=== PATIENT | male | born 1990 | race Two or more races ===

== ENCOUNTER 2018-09-02 22:26 | Inpatient (IN) | payer OTHER | END 2018-09-15 19:26 | disposition home or self-care (01) | LOC: YASAS 22:26 → Y5N 23:52 ==

== ENCOUNTER 2021-12-06 13:07 | Inpatient (IN) | payer OTHER ==
[2021-12-06] MEDS: THIAMINE HCL 100 MG TABLET (FP) PO SCH (00:39)
[2021-12-06 16:29] VITALS: BMI 20.7
[2021-12-06] MEDS ORDERED: diazePAM 5 MG TABLET PO SCH (17:00)
[2021-12-06] MEDS ORDERED: MAG HYDROX/AL HYDROX/SIMETH 30 ML UNIT-DOSE CUP PO PRN (18:03)
[2021-12-06] MEDS ORDERED: ONDANSETRON *ODT* 4 MG TABLET SL PRN (18:03)
[2021-12-06] MEDS ORDERED: LOPERAMIDE HCL 2 MG CAPSULE PO PRN (18:03)
[2021-12-06] MEDS ORDERED: NICOTINE 10 MG CARTRIDGE (INHALER) IH PRN (18:03)
[2021-12-06] MEDS ORDERED: NALOXONE HCL (KLOXXADO) 8 MG SPRAY NS PRN (18:03)
[2021-12-06] MEDS ORDERED: BENZOCAINE/MENTHOL (CHLORASEPTIC ) LOZENGE MM PRN (18:03)
[2021-12-06] MEDS ORDERED: IBUPROFEN 600 MG TABLET (FP) PO PRN (18:03)
[2021-12-06] MEDS ORDERED: BISMUTH SUBSALICYLATE 524 MG/30 ML PO PRN (18:03)
[2021-12-06] MEDS ORDERED: MAGNESIUM CITRATE 300 ML BOTTLE PO PRN (18:03)
[2021-12-06] MEDS ORDERED: MAGNESIUM HYDROX 2400MG/30ML ORAL SUSPENSION 30 ML CUP PO PRN (18:03)
[2021-12-06] MEDS ORDERED: ACETAMINOPHEN 325 MG TABLET (FP) PO PRN (18:03)
[2021-12-06] MEDS ORDERED: DICYCLOMINE HCL 10 MG CAPSULE PO PRN (18:03)
[2021-12-06] MEDS: NICOTINE 14 MG/24 HOURS TOPICAL PATCH TD SCH (19:33)
[2021-12-06] MEDS: PRENATAL VITAMINS W/ FOLIC ACID TABLET (FP) PO SCH (19:33)
[2021-12-06] MEDS: hydrOXYzine PAMOATE 25 MG CAPSULE (FP) PO PRN (19:50)
[2021-12-06] MEDS: diazePAM 5 MG TABLET PO SCH (19:51)
[2021-12-06] MEDS: METHOCARBAMOL 500 MG TABLET PO PRN (19:51)
[2021-12-07] MEDS: MELATONIN 5 MG TABLETS PO SCH ×2 (00:39→22:33)
[2021-12-07] MEDS: diazePAM 5 MG TABLET PO SCH ×4 (01:57→21:08)
[2021-12-07] MEDS ORDERED: methaDONE HCL 10 MG TABLET PO ONE (09:10)
[2021-12-07] MEDS ORDERED: methaDONE 40 MG, methaDONE 20 MG PO ONE (09:30)
[2021-12-07 09:54] LABS: HEMATOCRIT 35.3 % (35.4-49); HEMOGLOBIN 11.6 GM/dL (11.7-16.9); MCH 27.6 pg (25.7-33.7); MCHC 32.8 g/dl (32.0-35.9); MEAN PLT VOLUME 10.7 fl (7.5-11.1); PLATELET COUNT 129 10^3/uL (134-434); RDW 14.4 % (11.9-15.9); WHITE BLOOD COUNT 3.9 K/mm3 (4.0-10.0)
[2021-12-07 10:04] LABS: CALCIUM 8.8 mg/dL (8.5-10.1)
[2021-12-07 10:05] LABS: ALBUMIN 3.2 g/dl (3.4-5.0); BLOOD UREA NITROGEN 16.2 mg/dL (7-18)
[2021-12-07 10:07] LABS: CREATININE 0.8 mg/dL (0.55-1.3)
[2021-12-07 10:09] LABS: BILIRUBIN,TOTAL 0.4 mg/dL (0.2-1); TOT PROT 6.4 g/dl (6.4-8.2)
[2021-12-07] MEDS: METHOCARBAMOL 500 MG TABLET PO PRN ×2 (10:49→18:02)
[2021-12-07] MEDS: ACETAMINOPHEN 325 MG TABLET (FP) PO PRN (10:49)
[2021-12-07] MEDS: diazePAM 5 MG TABLET PO PRN ×3 (10:51→22:33)
[2021-12-07] MEDS: NICOTINE 14 MG/24 HOURS TOPICAL PATCH TD SCH (10:52)
[2021-12-07] MEDS: PRENATAL VITAMINS W/ FOLIC ACID TABLET (FP) PO SCH (10:52)
[2021-12-07] MEDS: THIAMINE HCL 100 MG TABLET (FP) PO SCH (22:33)
[2021-12-07] MEDS: IBUPROFEN 400 MG TABLET (FP) PO PRN (22:34)
[2021-12-08] MEDS: diazePAM 5 MG TABLET PO SCH ×3 (02:30→18:25)
[2021-12-08] MEDS ORDERED: diazePAM 5 MG TABLET PO SCH (06:00)
[2021-12-08] MEDS ORDERED: methaDONE HCL 10 MG TABLET PO ONE (06:00)
[2021-12-08] MEDS ORDERED: methaDONE 40 MG, methaDONE 30 MG PO ONE (06:00)
[2021-12-08] MEDS: NICOTINE 14 MG/24 HOURS TOPICAL PATCH TD SCH (11:00)
[2021-12-08] MEDS: PRENATAL VITAMINS W/ FOLIC ACID TABLET (FP) PO SCH (11:01)
[2021-12-08] MEDS: diazePAM 5 MG TABLET PO PRN ×2 (13:33→22:22)
[2021-12-08] MEDS: THIAMINE HCL 100 MG TABLET (FP) PO SCH (22:21)
[2021-12-08] MEDS: hydrOXYzine PAMOATE 25 MG CAPSULE (FP) PO PRN (22:21)
[2021-12-08] MEDS: METHOCARBAMOL 500 MG TABLET PO PRN (22:21)
[2021-12-08] MEDS: MELATONIN 5 MG TABLETS PO SCH (22:21)
[2021-12-08] MEDS: ACETAMINOPHEN 325 MG TABLET (FP) PO PRN (22:22)
[2021-12-09] MEDS ORDERED: diazePAM 5 MG TABLET PO SCH (06:00)
[2021-12-09] MEDS ORDERED: methaDONE HCL 10 MG TABLET PO SCH (06:00)
[2021-12-09] MEDS ORDERED: diazePAM 5 MG TABLET PO ONE (06:00)
[2021-12-09] MEDS: methaDONE HCL 40 MG DISPERSABLE TABLET PO SCH (06:06)
[2021-12-09] MEDS: PRENATAL VITAMINS W/ FOLIC ACID TABLET (FP) PO SCH (10:54)
[2021-12-09] MEDS: NICOTINE 14 MG/24 HOURS TOPICAL PATCH TD SCH (10:54)
[2021-12-09 12:41] VITALS: RESP 18
[2021-12-09] MEDS: THIAMINE HCL 100 MG TABLET (FP) PO SCH (22:14)
[2021-12-09] MEDS: MELATONIN 5 MG TABLETS PO SCH (22:14)
[2021-12-09] MEDS: IBUPROFEN 400 MG TABLET (FP) PO PRN (22:15)
[2021-12-10] MEDS: methaDONE HCL 40 MG DISPERSABLE TABLET PO SCH (05:16)
[2021-12-10] MEDS ORDERED: diazePAM 5 MG TABLET PO ONE (06:00)
[2021-12-10 09:41] VITALS: BP 111/58; PULSE 98; TEMP 97.8
[2021-12-10] MEDS: NICOTINE 14 MG/24 HOURS TOPICAL PATCH TD SCH (09:49)
[2021-12-10] MEDS: PRENATAL VITAMINS W/ FOLIC ACID TABLET (FP) PO SCH (09:50)
== END 2021-12-10 09:42 | disposition home or self-care (01) | DRG 773 ==
LOC: YASAS 13:07 → Y6N 18:17
PROVIDERS: ADMIT Allergy & Immunology; ATTEND Surgery
PROC: HZ2ZZZZ Detoxification Services for Substance Abuse Treatment (ICD-10-PCS; principal; 2021-12-06)
DX: F10.230 Alcohol dependence with withdrawal, uncomplicated (principal); F11.20 Opioid dependence, uncomplicated; F14.20 Cocaine dependence, uncomplicated; F17.210 Nicotine dependence, cigarettes, uncomplicated; Z86.19 Personal history of other infectious and parasitic diseases; Z88.0 Allergy status to penicillin; Z59.00 Homelessness unspecified
CPT/HCPCS: 36415; 80053; 85027; 86780; C9803-CS; U0003; U0005

== ENCOUNTER 2022-01-02 11:10 | Inpatient (IN) | payer OTHER ==
[2022-01-02 13:39] VITALS: BMI 20.7
[2022-01-02] MEDS ORDERED: chlordiazePOXIDE HCL 25 MG CAPSULE PO PRN (14:45)
[2022-01-02] MEDS ORDERED: ACETAMINOPHEN 325 MG TABLET (FP) PO PRN (14:50)
[2022-01-02] MEDS ORDERED: MAGNESIUM HYDROX 2400MG/30ML ORAL SUSPENSION 30 ML CUP PO PRN (14:50)
[2022-01-02] MEDS ORDERED: ONDANSETRON *ODT* 4 MG TABLET SL PRN (14:50)
[2022-01-02] MEDS ORDERED: MAG HYDROX/AL HYDROX/SIMETH 30 ML UNIT-DOSE CUP PO PRN (14:50)
[2022-01-02] MEDS ORDERED: IBUPROFEN 400 MG TABLET (FP) PO PRN (14:50)
[2022-01-02] MEDS ORDERED: BENZOCAINE/MENTHOL (CHLORASEPTIC ) LOZENGE MM PRN (14:50)
[2022-01-02] MEDS ORDERED: DICYCLOMINE HCL 10 MG CAPSULE PO PRN (14:50)
[2022-01-02] MEDS ORDERED: NICOTINE 10 MG CARTRIDGE (INHALER) IH PRN (14:50)
[2022-01-02] MEDS ORDERED: POLYETHYLENE GLYCOL (HEALTHYLAX) 3350 17 GM PACKET PO PRN (14:50)
[2022-01-02] MEDS ORDERED: LOPERAMIDE HCL 2 MG CAPSULE PO PRN (14:50)
[2022-01-02] MEDS ORDERED: NALOXONE HCL (KLOXXADO) 8 MG SPRAY NS PRN (14:50)
[2022-01-02] MEDS ORDERED: BISMUTH SUBSALICYLATE 262 MG/15 ML BTL PO PRN (14:50)
[2022-01-02] MEDS ORDERED: BENZOCAINE 20 % GEL TUBE MM PRN (14:56)
[2022-01-02] MEDS ORDERED: chlordiazePOXIDE HCL 25 MG CAPSULE PO SCH (17:00)
[2022-01-02] MEDS: hydrOXYzine PAMOATE 25 MG CAPSULE (FP) PO PRN ×2 (17:49→22:08)
[2022-01-02] MEDS: METHOCARBAMOL 500 MG TABLET PO PRN (17:49)
[2022-01-02] MEDS: diazePAM 5 MG TABLET PO SCH ×2 (17:50→22:08)
[2022-01-02] MEDS: IBUPROFEN 600 MG TABLET (FP) PO PRN (17:53)
[2022-01-02] MEDS: MELATONIN 5 MG TABLETS PO SCH (22:07)
[2022-01-02] MEDS: THIAMINE HCL 100 MG TABLET (FP) PO SCH (22:08)
[2022-01-03] MEDS: diazePAM 5 MG TABLET PO SCH ×4 (06:05→22:31)
[2022-01-03 10:38] LABS: HEMATOCRIT 39.5 % (35.4-49); HEMOGLOBIN 12.8 GM/dL (11.7-16.9); MCH 27.8 pg (25.7-33.7); MCHC 32.4 g/dl (32.0-35.9); MEAN CELL VOLUME 85.7 fl (80-96); MEAN PLT VOLUME 11.5 fl (7.5-11.1); PLATELET COUNT 141 10^3/uL (134-434); RDW 14.4 % (11.9-15.9); WHITE BLOOD COUNT 5.6 K/mm3 (4.0-10.0)
[2022-01-03 10:39] LABS: CALCIUM 9.5 mg/dL (8.5-10.1)
[2022-01-03 10:40] LABS: ALBUMIN 3.9 g/dl (3.4-5.0); BLOOD UREA NITROGEN 16.8 mg/dL (7-18)
[2022-01-03 10:43] LABS: CREATININE 0.9 mg/dL (0.55-1.3)
[2022-01-03 10:45] LABS: BILIRUBIN,TOTAL 0.4 mg/dL (0.2-1); TOT PROT 7.7 g/dl (6.4-8.2)
[2022-01-03] MEDS: methaDONE HCL 40 MG DISPERSABLE TABLET PO SCH (11:01)
[2022-01-03] MEDS: PRENATAL VITAMINS W/ FOLIC ACID TABLET (FP) PO SCH (11:02)
[2022-01-03] MEDS: IBUPROFEN 600 MG TABLET (FP) PO PRN ×2 (11:03→18:15)
[2022-01-03] MEDS: ACETAMINOPHEN 325 MG TABLET (FP) PO PRN (22:28)
[2022-01-03] MEDS: THIAMINE HCL 100 MG TABLET (FP) PO SCH (22:29)
[2022-01-03] MEDS: MELATONIN 5 MG TABLETS PO SCH (22:29)
[2022-01-04] MEDS ORDERED: chlordiazePOXIDE HCL 25 MG CAPSULE PO SCH (05:00)
[2022-01-04] MEDS: diazePAM 5 MG TABLET PO SCH ×3 (06:41→22:12)
[2022-01-04] MEDS: methaDONE HCL 40 MG DISPERSABLE TABLET PO SCH (06:41)
[2022-01-04] MEDS: METHOCARBAMOL 500 MG TABLET PO PRN ×2 (10:22→22:11)
[2022-01-04] MEDS: PRENATAL VITAMINS W/ FOLIC ACID TABLET (FP) PO SCH (10:22)
[2022-01-04] MEDS: ACETAMINOPHEN 325 MG TABLET (FP) PO PRN (10:22)
[2022-01-04] MEDS: diazePAM 5 MG TABLET PO PRN ×2 (10:23→18:08)
[2022-01-04 17:21] VITALS: RESP 18
[2022-01-04] MEDS: IBUPROFEN 600 MG TABLET (FP) PO PRN (18:07)
[2022-01-04] MEDS: THIAMINE HCL 100 MG TABLET (FP) PO SCH (22:11)
[2022-01-04] MEDS: MELATONIN 5 MG TABLETS PO SCH (22:11)
[2022-01-05] MEDS ORDERED: chlordiazePOXIDE HCL 10 MG CAPSULE PO PRN
[2022-01-05] MEDS ORDERED: chlordiazePOXIDE HCL 10 MG CAPSULE PO SCH (05:00)
[2022-01-05] MEDS: diazePAM 5 MG TABLET PO SCH ×2 (05:56→17:40)
[2022-01-05] MEDS: methaDONE HCL 40 MG DISPERSABLE TABLET PO SCH (05:57)
[2022-01-05] MEDS: ACETAMINOPHEN 325 MG TABLET (FP) PO PRN ×2 (06:00→17:47)
[2022-01-05] MEDS: METHOCARBAMOL 500 MG TABLET PO PRN ×2 (06:01→17:46)
[2022-01-05] MEDS: diazePAM 5 MG TABLET PO PRN ×2 (10:09→15:20)
[2022-01-05] MEDS: PRENATAL VITAMINS W/ FOLIC ACID TABLET (FP) PO SCH (10:10)
[2022-01-05] MEDS: THIAMINE HCL 100 MG TABLET (FP) PO SCH (22:10)
[2022-01-05] MEDS: MELATONIN 5 MG TABLETS PO SCH (22:10)
[2022-01-05] MEDS: IBUPROFEN 600 MG TABLET (FP) PO PRN (22:11)
[2022-01-06] MEDS ORDERED: chlordiazePOXIDE HCL 10 MG CAPSULE PO SCH (05:00)
[2022-01-06] MEDS: methaDONE HCL 40 MG DISPERSABLE TABLET PO SCH (05:53)
[2022-01-06] MEDS: ACETAMINOPHEN 325 MG TABLET (FP) PO PRN (05:53)
[2022-01-06] MEDS: METHOCARBAMOL 500 MG TABLET PO PRN (05:54)
[2022-01-06] MEDS ORDERED: diazePAM 5 MG TABLET PO ONE (06:00)
[2022-01-06 07:15] VITALS: BP 109/67; PULSE 68; TEMP 97.5
[2022-01-07] MEDS ORDERED: chlordiazePOXIDE HCL 10 MG CAPSULE PO ONE (05:00)
== END 2022-01-06 09:05 | disposition home or self-care (01) | DRG 773 ==
LOC: YASAS 11:10 → Y3N 15:33
PROVIDERS: ADMIT Allergy & Immunology; ATTEND Surgery
PROC: HZ2ZZZZ Detoxification Services for Substance Abuse Treatment (ICD-10-PCS; principal; 2022-01-02)
DX: F10.230 Alcohol dependence with withdrawal, uncomplicated (principal); F11.20 Opioid dependence, uncomplicated; F14.20 Cocaine dependence, uncomplicated; F17.210 Nicotine dependence, cigarettes, uncomplicated; F31.9 Bipolar disorder, unspecified; F19.24 Other psychoactive substance dependence with psychoactive substance-induced mood disorder; G47.00 Insomnia, unspecified; R74.01 Elevation of levels of liver transaminase levels; Z88.8 Allergy status to other drugs, medicaments and biological substances; Z56.0 Unemployment, unspecified; Z59.00 Homelessness unspecified
CPT/HCPCS: 36415; 80048; 80053; 85027; 86780; C9803-CS; U0003; U0005

== ENCOUNTER 2022-02-26 14:43 | Inpatient (IN) | payer OTHER ==
[2022-02-26 16:47] VITALS: BMI 27.0
[2022-02-26] MEDS ORDERED: MAGNESIUM HYDROX 2400MG/30ML ORAL SUSPENSION 30 ML CUP PO PRN (18:32)
[2022-02-26] MEDS ORDERED: MAG HYDROX/AL HYDROX/SIMETH 30 ML UNIT-DOSE CUP PO PRN (18:32)
[2022-02-26] MEDS ORDERED: ONDANSETRON *ODT* 4 MG TABLET SL PRN (18:32)
[2022-02-26] MEDS ORDERED: BENZOCAINE/MENTHOL (CHLORASEPTIC ) LOZENGE MM PRN (18:32)
[2022-02-26] MEDS ORDERED: DICYCLOMINE HCL 10 MG CAPSULE PO PRN (18:32)
[2022-02-26] MEDS ORDERED: LOPERAMIDE HCL 2 MG CAPSULE PO PRN (18:32)
[2022-02-26] MEDS ORDERED: NICOTINE 10 MG CARTRIDGE (INHALER) IH PRN (18:32)
[2022-02-26] MEDS ORDERED: ACETAMINOPHEN 325 MG TABLET (FP) PO PRN (18:32)
[2022-02-26] MEDS ORDERED: IBUPROFEN 400 MG TABLET (FP) PO PRN (18:32)
[2022-02-26] MEDS ORDERED: POLYETHYLENE GLYCOL (HEALTHYLAX) 3350 17 GM PACKET PO PRN (18:32)
[2022-02-26] MEDS ORDERED: BISMUTH SUBSALICYLATE 524 MG/30 ML PO PRN (18:32)
[2022-02-26] MEDS ORDERED: NALOXONE HCL (KLOXXADO) 8 MG SPRAY NS PRN (18:32)
[2022-02-26] MEDS: PRENATAL VITAMINS W/ FOLIC ACID TABLET (FP) PO SCH (21:32)
[2022-02-26] MEDS: THIAMINE HCL 100 MG TABLET (FP) PO SCH (22:28)
[2022-02-26] MEDS: MELATONIN 5 MG TABLETS PO SCH (22:28)
[2022-02-26] MEDS: METHOCARBAMOL 500 MG TABLET PO PRN (22:29)
[2022-02-26] MEDS: diazePAM 5 MG TABLET PO SCH (22:32)
[2022-02-27] MEDS: diazePAM 5 MG TABLET PO SCH ×4 (05:56→22:10)
[2022-02-27] MEDS: ACETAMINOPHEN 325 MG TABLET (FP) PO PRN (05:57)
[2022-02-27] MEDS: PRENATAL VITAMINS W/ FOLIC ACID TABLET (FP) PO SCH (10:29)
[2022-02-27] MEDS ORDERED: methaDONE HCL 40 MG DISPERSABLE TABLET PO ONE (11:00)
[2022-02-27 12:54] LABS: HEMATOCRIT 36.9 % (35.4-49); HEMOGLOBIN 12.1 GM/dL (11.7-16.9); MCH 27.9 pg (25.7-33.7); MCHC 32.9 g/dl (32.0-35.9); MEAN CELL VOLUME 84.8 fl (80-96); PLATELET COUNT 96 10^3/uL (134-434); RBC 4.35 M/mm3 (4.00-5.60); RDW 14.4 % (11.9-15.9); WHITE BLOOD COUNT 4.4 K/mm3 (4.0-10.0)
[2022-02-27 13:36] LABS: ALBUMIN 3.1 g/dl (3.4-5.0); CALCIUM 8.6 mg/dL (8.5-10.1)
[2022-02-27 13:39] LABS: CREATININE 0.7 mg/dL (0.55-1.3)
[2022-02-27 13:40] LABS: BILIRUBIN,TOTAL 1.1 mg/dL (0.2-1); TOT PROT 6.7 g/dl (6.4-8.2)
[2022-02-27] MEDS: METHOCARBAMOL 500 MG TABLET PO PRN (22:10)
[2022-02-27] MEDS: THIAMINE HCL 100 MG TABLET (FP) PO SCH (22:10)
[2022-02-27] MEDS: MELATONIN 5 MG TABLETS PO SCH (22:10)
[2022-02-27] MEDS: IBUPROFEN 600 MG TABLET (FP) PO PRN (22:43)
[2022-02-28] MEDS: diazePAM 5 MG TABLET PO PRN ×2 (00:40→18:25)
[2022-02-28] MEDS: methaDONE HCL 40 MG DISPERSABLE TABLET PO SCH (05:22)
[2022-02-28] MEDS: diazePAM 5 MG TABLET PO SCH ×3 (05:23→22:05)
[2022-02-28] MEDS: PRENATAL VITAMINS W/ FOLIC ACID TABLET (FP) PO SCH (10:43)
[2022-02-28] MEDS: IBUPROFEN 600 MG TABLET (FP) PO PRN (13:58)
[2022-02-28] MEDS ORDERED: BENZOCAINE 20 % GEL TUBE MM PRN (16:13)
[2022-02-28] MEDS: ACETAMINOPHEN 325 MG TABLET (FP) PO PRN (18:18)
[2022-02-28] MEDS: MELATONIN 5 MG TABLETS PO SCH (22:06)
[2022-02-28] MEDS: THIAMINE HCL 100 MG TABLET (FP) PO SCH (22:06)
[2022-02-28] MEDS: METHOCARBAMOL 500 MG TABLET PO PRN (22:06)
[2022-03-01] MEDS: methaDONE HCL 40 MG DISPERSABLE TABLET PO SCH (06:43)
[2022-03-01] MEDS: IBUPROFEN 600 MG TABLET (FP) PO PRN ×2 (06:46→17:32)
[2022-03-01] MEDS: diazePAM 5 MG TABLET PO SCH ×2 (06:46→17:32)
[2022-03-01] MEDS: PRENATAL VITAMINS W/ FOLIC ACID TABLET (FP) PO SCH (10:08)
[2022-03-01] MEDS: diazePAM 5 MG TABLET PO PRN (10:10)
[2022-03-01] MEDS: THIAMINE HCL 100 MG TABLET (FP) PO SCH (22:11)
[2022-03-01] MEDS: MELATONIN 5 MG TABLETS PO SCH (22:11)
[2022-03-01] MEDS: METHOCARBAMOL 500 MG TABLET PO PRN (22:13)
[2022-03-02] MEDS: methaDONE HCL 40 MG DISPERSABLE TABLET PO SCH (05:33)
[2022-03-02] MEDS ORDERED: diazePAM 5 MG TABLET PO ONE (06:00)
[2022-03-02] MEDS: PRENATAL VITAMINS W/ FOLIC ACID TABLET (FP) PO SCH (10:33)
[2022-03-02 13:01] VITALS: BP 107/61; PULSE 65; RESP 18; TEMP 97.3
[2022-03-02] MEDS ORDERED: MAGNESIUM HYDROX 2400MG/30ML ORAL SUSPENSION 30 ML CUP PO PRN (21:24)
[2022-03-02] MEDS ORDERED: NICOTINE 10 MG CARTRIDGE (INHALER) IH PRN (21:24)
[2022-03-02] MEDS ORDERED: guaiFENesin 200 MG/10 ML 10 ML UNIT-DOSE CUPS PO PRN (21:24)
[2022-03-02] MEDS ORDERED: P-EPHED 60MG/TRIPROLIDI 2.5MG TABLET PO PRN (21:24)
[2022-03-02] MEDS ORDERED: MAG HYDROX/AL HYDROX/SIMETH 30 ML UNIT-DOSE CUP PO PRN (21:24)
[2022-03-02] MEDS ORDERED: IBUPROFEN 400 MG TABLET (FP) PO PRN (21:24)
[2022-03-02] MEDS ORDERED: POLYETHYLENE GLYCOL (HEALTHYLAX) 3350 17 GM PACKET PO PRN (21:24)
[2022-03-02] MEDS ORDERED: BENZOCAINE/MENTHOL (CHLORASEPTIC ) LOZENGE MM PRN (21:24)
[2022-03-02] MEDS ORDERED: LOPERAMIDE HCL 2 MG CAPSULE PO PRN (21:24)
[2022-03-02] MEDS ORDERED: ACETAMINOPHEN 325 MG TABLET (FP) PO PRN (21:24)
[2022-03-02] MEDS ORDERED: THIAMINE HCL 100 MG TABLET (FP) PO SCH (22:00)
[2022-03-02] MEDS ORDERED: MELATONIN 5 MG TABLETS PO SCH (22:00)
[2022-03-03] MEDS ORDERED: NICOTINE 7 MG/24 HOURS TOPICAL PATCH TD SCH (10:00)
[2022-03-03] MEDS ORDERED: PRENATAL VITAMINS W/ FOLIC ACID TABLET (FP) PO SCH (10:00)
== END 2022-03-02 18:26 | disposition other institution (70) | DRG 773 ==
LOC: YASAS 14:43 → Y3N 19:44
PROVIDERS: ADMIT Allergy & Immunology; ATTEND Surgery
PROC: HZ2ZZZZ Detoxification Services for Substance Abuse Treatment (ICD-10-PCS; principal; 2022-02-26)
DX: F11.23 Opioid dependence with withdrawal (principal); F10.230 Alcohol dependence with withdrawal, uncomplicated; F14.20 Cocaine dependence, uncomplicated; F17.210 Nicotine dependence, cigarettes, uncomplicated; F31.9 Bipolar disorder, unspecified; F19.24 Other psychoactive substance dependence with psychoactive substance-induced mood disorder; G47.00 Insomnia, unspecified; R73.03 Prediabetes; Z86.19 Personal history of other infectious and parasitic diseases; Z56.0 Unemployment, unspecified; Z59.00 Homelessness unspecified; Z88.0 Allergy status to penicillin
CPT/HCPCS: 36415; 80053; 85027; 86780; C9803-CS; U0003; U0005

== ENCOUNTER 2022-03-02 18:29 | Inpatient (IN) | payer OTHER ==
[2022-03-02] MEDS ORDERED: LOPERAMIDE HCL 2 MG CAPSULE PO PRN (21:31)
[2022-03-02] MEDS ORDERED: guaiFENesin 200 MG/10 ML 10 ML UNIT-DOSE CUPS PO PRN (21:32)
[2022-03-02] MEDS ORDERED: P-EPHED 60MG/TRIPROLIDI 2.5MG TABLET PO PRN (21:32)
[2022-03-02] MEDS ORDERED: MAGNESIUM HYDROX 2400MG/30ML ORAL SUSPENSION 30 ML CUP PO PRN (21:32)
[2022-03-02] MEDS ORDERED: MAG HYDROX/AL HYDROX/SIMETH 30 ML UNIT-DOSE CUP PO PRN (21:32)
[2022-03-02] MEDS ORDERED: BENZOCAINE/MENTHOL (CHLORASEPTIC ) LOZENGE MM PRN (21:33)
[2022-03-02] MEDS ORDERED: ACETAMINOPHEN 325 MG TABLET (FP) PO PRN (21:33)
[2022-03-02] MEDS ORDERED: POLYETHYLENE GLYCOL (HEALTHYLAX) 3350 17 GM PACKET PO PRN (21:33)
[2022-03-02] MEDS ORDERED: NICOTINE 10 MG CARTRIDGE (INHALER) IH PRN (21:33)
[2022-03-02] MEDS: THIAMINE HCL 100 MG TABLET (FP) PO SCH (22:15)
[2022-03-02] MEDS: MELATONIN 5 MG TABLETS PO SCH (22:16)
[2022-03-03] MEDS: methaDONE HCL 40 MG DISPERSABLE TABLET PO SCH (06:32)
[2022-03-03] MEDS: IBUPROFEN 400 MG TABLET (FP) PO PRN (09:57)
[2022-03-03] MEDS: NICOTINE 7 MG/24 HOURS TOPICAL PATCH TD SCH (09:58)
[2022-03-03] MEDS: PRENATAL VITAMINS W/ FOLIC ACID TABLET (FP) PO SCH (09:58)
[2022-03-03] MEDS: THIAMINE HCL 100 MG TABLET (FP) PO SCH (21:39)
[2022-03-03] MEDS: hydrOXYzine PAMOATE 25 MG CAPSULE (FP) PO PRN (21:39)
[2022-03-03] MEDS: MELATONIN 5 MG TABLETS PO SCH (21:39)
[2022-03-04] MEDS: methaDONE HCL 40 MG DISPERSABLE TABLET PO SCH (06:47)
[2022-03-04] MEDS: PRENATAL VITAMINS W/ FOLIC ACID TABLET (FP) PO SCH (10:05)
[2022-03-04] MEDS: NICOTINE 7 MG/24 HOURS TOPICAL PATCH TD SCH (10:05)
[2022-03-04] MEDS ORDERED: NICOTINE 7 MG/24 HOURS TOPICAL PATCH TD PRN (13:41)
[2022-03-04] MEDS ORDERED: PRENATAL VITAMINS W/ FOLIC ACID TABLET (FP) PO PRN (14:00)
[2022-03-04] MEDS: hydrOXYzine PAMOATE 25 MG CAPSULE (FP) PO PRN (21:15)
[2022-03-04] MEDS: QUEtiapine FUMARATE 100 MG TABLET (FP) PO SCH (21:15)
[2022-03-04] MEDS: THIAMINE HCL 100 MG TABLET (FP) PO SCH (21:15)
[2022-03-05] MEDS: methaDONE HCL 40 MG DISPERSABLE TABLET PO SCH (06:49)
[2022-03-05] MEDS: GABAPENTIN 100 MG CAPSULE PO SCH ×2 (14:07→21:17)
[2022-03-05] MEDS: THIAMINE HCL 100 MG TABLET (FP) PO SCH (21:17)
[2022-03-05] MEDS: QUEtiapine FUMARATE 100 MG TABLET (FP) PO SCH (21:17)
[2022-03-05] MEDS: SUVOREXANT 10 MG TABLET PO PRN (21:19)
[2022-03-05] MEDS: IBUPROFEN 400 MG TABLET (FP) PO PRN (21:19)
[2022-03-06] MEDS: GABAPENTIN 100 MG CAPSULE PO SCH ×3 (06:31→21:10)
[2022-03-06] MEDS: methaDONE HCL 40 MG DISPERSABLE TABLET PO SCH (06:31)
[2022-03-06] MEDS: IBUPROFEN 400 MG TABLET (FP) PO PRN (10:13)
[2022-03-06] MEDS: hydrOXYzine PAMOATE 25 MG CAPSULE (FP) PO PRN (12:31)
[2022-03-06] MEDS: SUVOREXANT 10 MG TABLET PO PRN (21:10)
[2022-03-06] MEDS: QUEtiapine FUMARATE 100 MG TABLET (FP) PO SCH (21:10)
[2022-03-06] MEDS: THIAMINE HCL 100 MG TABLET (FP) PO SCH (21:11)
[2022-03-07] MEDS: GABAPENTIN 100 MG CAPSULE PO SCH ×3 (06:54→21:20)
[2022-03-07] MEDS: methaDONE HCL 40 MG DISPERSABLE TABLET PO SCH (06:54)
[2022-03-07] MEDS: IBUPROFEN 400 MG TABLET (FP) PO PRN (13:42)
[2022-03-07] MEDS: QUEtiapine FUMARATE 100 MG TABLET (FP) PO SCH (21:20)
[2022-03-07] MEDS: SUVOREXANT 10 MG TABLET PO PRN (21:21)
[2022-03-07] MEDS: THIAMINE HCL 100 MG TABLET (FP) PO SCH (21:21)
[2022-03-08] MEDS: GABAPENTIN 100 MG CAPSULE PO SCH ×3 (07:20→21:16)
[2022-03-08] MEDS: methaDONE HCL 40 MG DISPERSABLE TABLET PO SCH (07:20)
[2022-03-08] MEDS: THIAMINE HCL 100 MG TABLET (FP) PO SCH (21:16)
[2022-03-08] MEDS: QUEtiapine FUMARATE 100 MG TABLET (FP) PO SCH (21:17)
[2022-03-08] MEDS: IBUPROFEN 400 MG TABLET (FP) PO PRN (21:19)
[2022-03-08] MEDS: SUVOREXANT 10 MG TABLET PO PRN (21:19)
[2022-03-09] MEDS: methaDONE HCL 40 MG DISPERSABLE TABLET PO SCH (06:45)
[2022-03-09] MEDS: GABAPENTIN 100 MG CAPSULE PO SCH ×3 (06:45→21:04)
[2022-03-09] MEDS: IBUPROFEN 400 MG TABLET (FP) PO PRN (13:07)
[2022-03-09] MEDS: THIAMINE HCL 100 MG TABLET (FP) PO SCH (21:04)
[2022-03-09] MEDS: SUVOREXANT 10 MG TABLET PO PRN (21:04)
[2022-03-09] MEDS: QUEtiapine FUMARATE 100 MG TABLET (FP) PO SCH (21:04)
[2022-03-10] MEDS: methaDONE HCL 40 MG DISPERSABLE TABLET PO SCH (06:25)
[2022-03-10] MEDS: GABAPENTIN 100 MG CAPSULE PO SCH ×3 (06:25→21:06)
[2022-03-10] MEDS: hydrOXYzine PAMOATE 25 MG CAPSULE (FP) PO PRN (21:06)
[2022-03-10] MEDS: QUEtiapine FUMARATE 100 MG TABLET (FP) PO SCH (21:06)
[2022-03-10] MEDS: SUVOREXANT 10 MG TABLET PO PRN (21:06)
[2022-03-10] MEDS: THIAMINE HCL 100 MG TABLET (FP) PO SCH (21:06)
[2022-03-11] MEDS: methaDONE HCL 40 MG DISPERSABLE TABLET PO SCH (06:50)
[2022-03-11] MEDS: GABAPENTIN 100 MG CAPSULE PO SCH ×3 (06:50→21:05)
[2022-03-11 06:52] VITALS: RESP 16
[2022-03-11] MEDS: THIAMINE HCL 100 MG TABLET (FP) PO SCH (21:05)
[2022-03-11] MEDS: SUVOREXANT 10 MG TABLET PO PRN (21:05)
[2022-03-11] MEDS: hydrOXYzine PAMOATE 25 MG CAPSULE (FP) PO PRN (21:05)
[2022-03-11] MEDS: QUEtiapine FUMARATE 100 MG TABLET (FP) PO SCH (21:05)
[2022-03-12] MEDS: methaDONE HCL 40 MG DISPERSABLE TABLET PO SCH (06:42)
[2022-03-12] MEDS: GABAPENTIN 100 MG CAPSULE PO SCH ×3 (06:42→21:03)
[2022-03-12] MEDS: hydrOXYzine PAMOATE 25 MG CAPSULE (FP) PO PRN (21:03)
[2022-03-12] MEDS: THIAMINE HCL 100 MG TABLET (FP) PO SCH (21:03)
[2022-03-12] MEDS: QUEtiapine FUMARATE 100 MG TABLET (FP) PO SCH (21:03)
[2022-03-12] MEDS: SUVOREXANT 10 MG TABLET PO PRN (21:04)
[2022-03-13] MEDS: GABAPENTIN 100 MG CAPSULE PO SCH ×3 (06:18→21:07)
[2022-03-13] MEDS: methaDONE HCL 40 MG DISPERSABLE TABLET PO SCH (06:18)
[2022-03-13] MEDS: hydrOXYzine PAMOATE 25 MG CAPSULE (FP) PO PRN (21:07)
[2022-03-13] MEDS: SUVOREXANT 10 MG TABLET PO PRN (21:07)
[2022-03-13] MEDS: THIAMINE HCL 100 MG TABLET (FP) PO SCH (21:07)
[2022-03-13] MEDS: QUEtiapine FUMARATE 100 MG TABLET (FP) PO SCH (21:07)
[2022-03-14] MEDS: GABAPENTIN 100 MG CAPSULE PO SCH (06:09)
[2022-03-14] MEDS: methaDONE HCL 40 MG DISPERSABLE TABLET PO SCH (06:09)
[2022-03-14 07:05] VITALS: BP 118/72; PULSE 71; TEMP 97.8
== END 2022-03-14 12:56 | disposition home or self-care (01) | DRG 772 ==
LOC: YASAS 18:29 → Y3E 18:31
PROVIDERS: ADMIT Allergy & Immunology; ATTEND Psychiatry & Neurology Pain Medicine
PROC: HZ42ZZZ Group Counseling for Substance Abuse Treatment, Cognitive-Behavioral (ICD-10-PCS; principal; 2022-03-02)
DX: F11.20 Opioid dependence, uncomplicated (principal); F10.20 Alcohol dependence, uncomplicated; F14.20 Cocaine dependence, uncomplicated; F17.210 Nicotine dependence, cigarettes, uncomplicated; F19.24 Other psychoactive substance dependence with psychoactive substance-induced mood disorder; F41.9 Anxiety disorder, unspecified; F32.A Depression, unspecified; R74.01 Elevation of levels of liver transaminase levels; Z86.19 Personal history of other infectious and parasitic diseases; Z88.0 Allergy status to penicillin

== ENCOUNTER 2022-04-10 14:25 | Inpatient (IN) | payer OTHER ==
[2022-04-10 14:47] VITALS: BMI 26.6
[2022-04-10] MEDS ORDERED: ONDANSETRON *ODT* 4 MG TABLET SL PRN (15:56)
[2022-04-10] MEDS ORDERED: IBUPROFEN 600 MG TABLET (FP) PO PRN (15:56)
[2022-04-10] MEDS ORDERED: DICYCLOMINE HCL 10 MG CAPSULE PO PRN (15:56)
[2022-04-10] MEDS ORDERED: POLYETHYLENE GLYCOL (HEALTHYLAX) 3350 17 GM PACKET PO PRN (15:56)
[2022-04-10] MEDS ORDERED: IBUPROFEN 400 MG TABLET (FP) PO PRN (15:56)
[2022-04-10] MEDS ORDERED: NALOXONE HCL (KLOXXADO) 8 MG SPRAY NS PRN (15:56)
[2022-04-10] MEDS ORDERED: MAGNESIUM HYDROX 2400MG/30ML ORAL SUSPENSION 30 ML CUP PO PRN (15:56)
[2022-04-10] MEDS ORDERED: LOPERAMIDE HCL 2 MG CAPSULE PO PRN (15:56)
[2022-04-10] MEDS ORDERED: MAG HYDROX/AL HYDROX/SIMETH 30 ML UNIT-DOSE CUP PO PRN (15:56)
[2022-04-10] MEDS ORDERED: BISMUTH SUBSALICYLATE 524 MG/30 ML PO PRN (15:56)
[2022-04-10] MEDS ORDERED: BENZOCAINE/MENTHOL (CHLORASEPTIC ) LOZENGE MM PRN (15:56)
[2022-04-10] MEDS ORDERED: NICOTINE 10 MG CARTRIDGE (INHALER) IH PRN (15:56)
[2022-04-10] MEDS ORDERED: ACETAMINOPHEN 325 MG TABLET (FP) PO PRN ×2 (15:56)
[2022-04-10] MEDS: PRENATAL VITAMINS W/ FOLIC ACID TABLET (FP) PO SCH (16:51)
[2022-04-10] MEDS: diazePAM 5 MG TABLET PO SCH ×2 (16:51→22:31)
[2022-04-10] MEDS ORDERED: diazePAM 5 MG TABLET ONE (16:55)
[2022-04-10] MEDS ORDERED: PRENATAL VITAMINS W/ FOLIC ACID TABLET (FP) PO ONE (16:56)
[2022-04-10] MEDS: THIAMINE HCL 100 MG TABLET (FP) PO SCH (22:29)
[2022-04-10] MEDS: MELATONIN 5 MG TABLETS PO SCH (22:29)
[2022-04-10] MEDS: METHOCARBAMOL 500 MG TABLET PO PRN (22:30)
[2022-04-11] MEDS: diazePAM 5 MG TABLET PO SCH ×4 (05:37→22:21)
[2022-04-11] MEDS: methaDONE HCL 40 MG DISPERSABLE TABLET PO SCH (10:18)
[2022-04-11] MEDS: PRENATAL VITAMINS W/ FOLIC ACID TABLET (FP) PO SCH (10:19)
[2022-04-11] MEDS: METHOCARBAMOL 500 MG TABLET PO PRN ×2 (10:21→17:48)
[2022-04-11] MEDS: hydrOXYzine PAMOATE 25 MG CAPSULE (FP) PO PRN ×2 (10:22→17:48)
[2022-04-11 13:42] LABS: HEMATOCRIT 37.1 % (35.4-49); HEMOGLOBIN 12.6 GM/dL (11.7-16.9); MCH 29.1 pg (25.7-33.7); MEAN CELL VOLUME 85.7 fl (80-96); MEAN PLT VOLUME 10.9 fl (7.5-11.1); PLATELET COUNT 86 10^3/uL (134-434); RBC 4.33 M/mm3 (4.00-5.60); RDW 13.6 % (11.9-15.9)
[2022-04-11 14:32] LABS: ALBUMIN 3.3 g/dl (3.4-5.0); BLOOD UREA NITROGEN 11.3 mg/dL (7-18); CALCIUM 8.9 mg/dL (8.5-10.1)
[2022-04-11 14:35] LABS: CREATININE 0.8 mg/dL (0.55-1.3)
[2022-04-11 14:36] LABS: BILIRUBIN,TOTAL 0.4 mg/dL (0.2-1); TOT PROT 7.2 g/dl (6.4-8.2)
[2022-04-11] MEDS: MELATONIN 5 MG TABLETS PO SCH (22:21)
[2022-04-11] MEDS: THIAMINE HCL 100 MG TABLET (FP) PO SCH (22:21)
[2022-04-12] MEDS: diazePAM 5 MG TABLET PO PRN ×3 (01:26→18:06)
[2022-04-12] MEDS: diazePAM 5 MG TABLET PO SCH ×3 (05:42→22:35)
[2022-04-12] MEDS: methaDONE HCL 40 MG DISPERSABLE TABLET PO SCH (05:42)
[2022-04-12] MEDS: PRENATAL VITAMINS W/ FOLIC ACID TABLET (FP) PO SCH (10:13)
[2022-04-12] MEDS: METHOCARBAMOL 500 MG TABLET PO PRN (10:17)
[2022-04-12] MEDS: hydrOXYzine PAMOATE 25 MG CAPSULE (FP) PO PRN ×2 (10:18→22:35)
[2022-04-12] MEDS: THIAMINE HCL 100 MG TABLET (FP) PO SCH (22:34)
[2022-04-12] MEDS: MELATONIN 5 MG TABLETS PO SCH (22:34)
[2022-04-13] MEDS: METHOCARBAMOL 500 MG TABLET PO PRN ×3 (02:44→17:57)
[2022-04-13] MEDS: diazePAM 5 MG TABLET PO PRN ×2 (02:44→10:05)
[2022-04-13] MEDS: diazePAM 5 MG TABLET PO SCH ×2 (05:52→17:55)
[2022-04-13] MEDS: methaDONE HCL 40 MG DISPERSABLE TABLET PO SCH (05:52)
[2022-04-13] MEDS: PRENATAL VITAMINS W/ FOLIC ACID TABLET (FP) PO SCH (10:04)
[2022-04-13] MEDS: hydrOXYzine PAMOATE 25 MG CAPSULE (FP) PO PRN ×2 (10:06→17:57)
[2022-04-13] MEDS: MELATONIN 5 MG TABLETS PO STA ×2 (22:52→22:58)
[2022-04-13] MEDS: MELATONIN 5 MG TABLETS PO SCH ×2 (22:53→22:56)
[2022-04-13] MEDS: THIAMINE HCL 100 MG TABLET (FP) PO SCH ×2 (22:54→22:58)
[2022-04-14] MEDS: methaDONE HCL 40 MG DISPERSABLE TABLET PO SCH (05:19)
[2022-04-14] MEDS ORDERED: diazePAM 5 MG TABLET PO ONE (06:00)
[2022-04-14] MEDS: METHOCARBAMOL 500 MG TABLET PO PRN ×2 (10:08→18:36)
[2022-04-14] MEDS: PRENATAL VITAMINS W/ FOLIC ACID TABLET (FP) PO SCH (10:08)
[2022-04-14] MEDS: hydrOXYzine PAMOATE 25 MG CAPSULE (FP) PO PRN ×2 (10:08→18:36)
[2022-04-14] MEDS ORDERED: cloNIDine HCL 0.1 MG TABLET PO PRN (13:08)
[2022-04-14] MEDS: MELATONIN 5 MG TABLETS PO SCH (23:21)
[2022-04-14] MEDS: THIAMINE HCL 100 MG TABLET (FP) PO SCH (23:21)
[2022-04-15] MEDS: MELATONIN 5 MG TABLETS PO SCH (00:10)
[2022-04-15] MEDS: methaDONE HCL 40 MG DISPERSABLE TABLET PO SCH (05:16)
[2022-04-15 09:35] VITALS: BP 119/72; PULSE 77; RESP 18; TEMP 96.6
[2022-04-15] MEDS: PRENATAL VITAMINS W/ FOLIC ACID TABLET (FP) PO SCH (10:11)
[2022-04-15] MEDS: hydrOXYzine PAMOATE 25 MG CAPSULE (FP) PO PRN (10:12)
[2022-04-15] MEDS: METHOCARBAMOL 500 MG TABLET PO PRN (10:12)
== END 2022-04-15 11:23 | disposition other institution (70) | DRG 773 ==
LOC: YASAS 14:25 → Y3N 16:43
PROVIDERS: ADMIT Allergy & Immunology; ATTEND Surgery
PROC: HZ2ZZZZ Detoxification Services for Substance Abuse Treatment (ICD-10-PCS; principal; 2022-04-10)
DX: F10.230 Alcohol dependence with withdrawal, uncomplicated (principal); F11.20 Opioid dependence, uncomplicated; F14.20 Cocaine dependence, uncomplicated; F17.210 Nicotine dependence, cigarettes, uncomplicated; F31.9 Bipolar disorder, unspecified; F19.24 Other psychoactive substance dependence with psychoactive substance-induced mood disorder; G47.00 Insomnia, unspecified; R73.03 Prediabetes; R74.8 Abnormal levels of other serum enzymes; Z86.19 Personal history of other infectious and parasitic diseases; Z88.0 Allergy status to penicillin
CPT/HCPCS: 36415; 80053; 82140; 84450; 84460; 85027; 86780; 87811; C9803-CS; U0003; U0005

== ENCOUNTER 2022-04-15 11:27 | Inpatient (IN) | payer OTHER ==
[2022-04-15] MEDS ORDERED: guaiFENesin 200 MG/10 ML 10 ML UNIT-DOSE CUPS PO PRN (14:10)
[2022-04-15] MEDS ORDERED: POLYETHYLENE GLYCOL (HEALTHYLAX) 3350 17 GM PACKET PO PRN (14:10)
[2022-04-15] MEDS ORDERED: MAGNESIUM HYDROX 2400MG/30ML ORAL SUSPENSION 30 ML CUP PO PRN (14:10)
[2022-04-15] MEDS ORDERED: MAG HYDROX/AL HYDROX/SIMETH 30 ML UNIT-DOSE CUP PO PRN (14:10)
[2022-04-15] MEDS ORDERED: ACETAMINOPHEN 325 MG TABLET (FP) PO PRN (14:10)
[2022-04-15] MEDS ORDERED: BENZOCAINE/MENTHOL (CHLORASEPTIC ) LOZENGE MM PRN (14:10)
[2022-04-15] MEDS ORDERED: NICOTINE 10 MG CARTRIDGE (INHALER) IH PRN (14:10)
[2022-04-15] MEDS ORDERED: LOPERAMIDE HCL 2 MG CAPSULE PO PRN (14:10)
[2022-04-15] MEDS ORDERED: P-EPHED 60MG/TRIPROLIDI 2.5MG TABLET PO PRN (14:10)
[2022-04-15] MEDS ORDERED: NICOTINE POLACRILEX 4 MG GUM BUC PRN (14:10)
[2022-04-15] MEDS: hydrOXYzine PAMOATE 25 MG CAPSULE (FP) PO PRN (21:12)
[2022-04-15] MEDS: THIAMINE HCL 100 MG TABLET (FP) PO SCH (21:12)
[2022-04-15] MEDS ORDERED: MELATONIN 5 MG TABLETS PO SCH (22:00)
[2022-04-16] MEDS: hydrOXYzine PAMOATE 25 MG CAPSULE (FP) PO PRN ×2 (06:08→13:15)
[2022-04-16] MEDS: IBUPROFEN 400 MG TABLET (FP) PO PRN ×2 (06:08→21:13)
[2022-04-16] MEDS: methaDONE HCL 40 MG DISPERSABLE TABLET PO SCH (06:10)
[2022-04-16] MEDS: PRENATAL VITAMINS W/ FOLIC ACID TABLET (FP) PO SCH (13:15)
[2022-04-16] MEDS: NICOTINE 7 MG/24 HOURS TOPICAL PATCH TD SCH (13:15)
[2022-04-16] MEDS: GABAPENTIN 100 MG CAPSULE PO SCH ×2 (14:40→21:11)
[2022-04-16] MEDS: THIAMINE HCL 100 MG TABLET (FP) PO SCH (21:11)
[2022-04-16] MEDS: hydrOXYzine PAMOATE 50 MG CAPSULE (FP) PO PRN (21:13)
[2022-04-16] MEDS: SUVOREXANT 10 MG TABLET PO PRN (21:13)
[2022-04-17] MEDS: GABAPENTIN 100 MG CAPSULE PO SCH ×3 (05:56→21:37)
[2022-04-17] MEDS: methaDONE HCL 40 MG DISPERSABLE TABLET PO SCH (05:56)
[2022-04-17] MEDS: hydrOXYzine PAMOATE 50 MG CAPSULE (FP) PO PRN ×3 (05:57→21:38)
[2022-04-17] MEDS: NICOTINE 7 MG/24 HOURS TOPICAL PATCH TD SCH (09:54)
[2022-04-17] MEDS: PRENATAL VITAMINS W/ FOLIC ACID TABLET (FP) PO SCH (09:54)
[2022-04-17] MEDS: THIAMINE HCL 100 MG TABLET (FP) PO SCH (21:37)
[2022-04-17] MEDS: IBUPROFEN 400 MG TABLET (FP) PO PRN (21:38)
[2022-04-17] MEDS: SUVOREXANT 10 MG TABLET PO PRN (21:38)
[2022-04-18] MEDS: GABAPENTIN 100 MG CAPSULE PO SCH ×3 (06:16→21:05)
[2022-04-18] MEDS: hydrOXYzine PAMOATE 50 MG CAPSULE (FP) PO PRN ×2 (06:16→21:06)
[2022-04-18] MEDS: methaDONE HCL 40 MG DISPERSABLE TABLET PO SCH (06:16)
[2022-04-18] MEDS: PRENATAL VITAMINS W/ FOLIC ACID TABLET (FP) PO SCH (10:33)
[2022-04-18] MEDS: NICOTINE 7 MG/24 HOURS TOPICAL PATCH TD SCH (10:33)
[2022-04-18] MEDS: THIAMINE HCL 100 MG TABLET (FP) PO SCH (21:05)
[2022-04-18] MEDS: SUVOREXANT 10 MG TABLET PO PRN (21:05)
[2022-04-18] MEDS: IBUPROFEN 400 MG TABLET (FP) PO PRN (21:05)
[2022-04-19] MEDS: GABAPENTIN 100 MG CAPSULE PO SCH ×3 (06:24→21:52)
[2022-04-19] MEDS: methaDONE HCL 40 MG DISPERSABLE TABLET PO SCH (06:24)
[2022-04-19] MEDS: hydrOXYzine PAMOATE 50 MG CAPSULE (FP) PO PRN ×2 (06:25→21:53)
[2022-04-19] MEDS: PRENATAL VITAMINS W/ FOLIC ACID TABLET (FP) PO SCH (09:45)
[2022-04-19] MEDS: NICOTINE 7 MG/24 HOURS TOPICAL PATCH TD SCH (09:46)
[2022-04-19] MEDS: IBUPROFEN 400 MG TABLET (FP) PO PRN (14:33)
[2022-04-19] MEDS: THIAMINE HCL 100 MG TABLET (FP) PO SCH (21:52)
[2022-04-19] MEDS: SUVOREXANT 10 MG TABLET PO PRN (21:53)
[2022-04-20] MEDS: methaDONE HCL 40 MG DISPERSABLE TABLET PO SCH (06:10)
[2022-04-20] MEDS: GABAPENTIN 100 MG CAPSULE PO SCH ×3 (06:11→21:04)
[2022-04-20] MEDS: hydrOXYzine PAMOATE 50 MG CAPSULE (FP) PO PRN ×3 (06:11→21:04)
[2022-04-20] MEDS: NICOTINE 7 MG/24 HOURS TOPICAL PATCH TD SCH (10:49)
[2022-04-20] MEDS: PRENATAL VITAMINS W/ FOLIC ACID TABLET (FP) PO SCH (10:49)
[2022-04-20] MEDS: THIAMINE HCL 100 MG TABLET (FP) PO SCH (21:04)
[2022-04-20] MEDS: SUVOREXANT 10 MG TABLET PO PRN (22:02)
[2022-04-21] MEDS: methaDONE HCL 40 MG DISPERSABLE TABLET PO SCH (06:09)
[2022-04-21] MEDS: GABAPENTIN 100 MG CAPSULE PO SCH ×3 (06:10→21:42)
[2022-04-21] MEDS: PRENATAL VITAMINS W/ FOLIC ACID TABLET (FP) PO SCH (10:38)
[2022-04-21] MEDS: NICOTINE 7 MG/24 HOURS TOPICAL PATCH TD SCH (10:38)
[2022-04-21] MEDS: THIAMINE HCL 100 MG TABLET (FP) PO SCH (21:42)
[2022-04-21] MEDS: hydrOXYzine PAMOATE 50 MG CAPSULE (FP) PO PRN (21:42)
[2022-04-21] MEDS: SUVOREXANT 10 MG TABLET PO PRN (21:43)
[2022-04-22] MEDS: methaDONE HCL 40 MG DISPERSABLE TABLET PO SCH (05:58)
[2022-04-22] MEDS: GABAPENTIN 100 MG CAPSULE PO SCH ×3 (05:58→21:09)
[2022-04-22] MEDS: hydrOXYzine PAMOATE 50 MG CAPSULE (FP) PO PRN ×2 (05:59→21:08)
[2022-04-22] MEDS: NICOTINE 7 MG/24 HOURS TOPICAL PATCH TD SCH (11:00)
[2022-04-22] MEDS: PRENATAL VITAMINS W/ FOLIC ACID TABLET (FP) PO SCH (11:00)
[2022-04-22] MEDS ORDERED: clonazePAM 0.5 MG ODT TABLETS SL ONE ×2 (14:45→22:00)
[2022-04-22] MEDS: SUVOREXANT 10 MG TABLET PO PRN (21:08)
[2022-04-22] MEDS: THIAMINE HCL 100 MG TABLET (FP) PO SCH (21:09)
[2022-04-23] MEDS: methaDONE HCL 40 MG DISPERSABLE TABLET PO SCH (06:08)
[2022-04-23] MEDS: GABAPENTIN 100 MG CAPSULE PO SCH (06:08)
[2022-04-23] MEDS: hydrOXYzine PAMOATE 50 MG CAPSULE (FP) PO PRN (06:09)
[2022-04-23 07:08] VITALS: BP 117/71; PULSE 77; RESP 18; TEMP 97.5
[2022-04-23] MEDS: NICOTINE 7 MG/24 HOURS TOPICAL PATCH TD SCH (10:23)
[2022-04-23] MEDS: PRENATAL VITAMINS W/ FOLIC ACID TABLET (FP) PO SCH (10:23)
== END 2022-04-23 11:04 | disposition left against medical advice (07) | DRG 770 ==
LOC: YASAS 11:27 → Y3W 11:28
PROVIDERS: ADMIT Allergy & Immunology; ATTEND Psychiatry & Neurology Pain Medicine
PROC: HZ42ZZZ Group Counseling for Substance Abuse Treatment, Cognitive-Behavioral (ICD-10-PCS; principal; 2022-04-15)
DX: F11.20 Opioid dependence, uncomplicated (principal); F10.20 Alcohol dependence, uncomplicated; F14.20 Cocaine dependence, uncomplicated; F13.20 Sedative, hypnotic or anxiolytic dependence, uncomplicated; F17.210 Nicotine dependence, cigarettes, uncomplicated; F31.9 Bipolar disorder, unspecified; F19.24 Other psychoactive substance dependence with psychoactive substance-induced mood disorder; F41.9 Anxiety disorder, unspecified; F41.0 Panic disorder [episodic paroxysmal anxiety]; Z86.19 Personal history of other infectious and parasitic diseases; Z88.0 Allergy status to penicillin
CPT/HCPCS: 36415; 86803; 87522

== ENCOUNTER 2022-06-04 13:12 | Inpatient (IN) | payer OTHER ==
[2022-06-04 13:59] VITALS: BMI 28.0
[2022-06-04] MEDS ORDERED: NALOXONE HCL 0.4 MG/ML VIAL IM PRN (17:32)
[2022-06-04] MEDS ORDERED: NICOTINE 10 MG CARTRIDGE (INHALER) IH PRN (17:32)
[2022-06-04] MEDS ORDERED: NALOXONE HCL (KLOXXADO) 8 MG SPRAY NS PRN (17:32)
[2022-06-04] MEDS ORDERED: BISMUTH SUBSALICYLATE 524 MG/30 ML PO PRN (17:32)
[2022-06-04] MEDS ORDERED: LOPERAMIDE HCL 2 MG CAPSULE PO PRN (17:32)
[2022-06-04] MEDS ORDERED: BENZOCAINE/MENTHOL (CHLORASEPTIC ) LOZENGE MM PRN (17:32)
[2022-06-04] MEDS ORDERED: P-EPHED 60MG/TRIPROLIDI 2.5MG TABLET PO PRN (17:32)
[2022-06-04] MEDS ORDERED: BENZONATATE 200 MG CAPSULE PO PRN (17:32)
[2022-06-04] MEDS ORDERED: TRIMETHOBENZAMIDE HCL 200MG/2ML INJ IM PRN (17:32)
[2022-06-04] MEDS ORDERED: guaiFENesin 600 MG TABLET.ER (FP) PO PRN (17:32)
[2022-06-04] MEDS ORDERED: DICYCLOMINE HCL 10 MG CAPSULE PO PRN (17:32)
[2022-06-04] MEDS ORDERED: MAGNESIUM HYDROX 2400MG/30ML ORAL SUSPENSION 30 ML CUP PO PRN (17:32)
[2022-06-04] MEDS ORDERED: POLYETHYLENE GLYCOL (HEALTHYLAX) 3350 17 GM PACKET PO PRN (17:32)
[2022-06-04] MEDS ORDERED: NICOTINE POLACRILEX 2 MG GUM BUC PRN (17:32)
[2022-06-04] MEDS: diazePAM 5 MG TABLET PO PRN ×2 (18:36→22:21)
[2022-06-04] MEDS: ACETAMINOPHEN 325 MG TABLET (FP) PO PRN (18:37)
[2022-06-04] MEDS: THIAMINE HCL 100 MG TABLET (FP) PO SCH (22:20)
[2022-06-04] MEDS: MELATONIN 5 MG TABLETS PO PRN (22:20)
[2022-06-04] MEDS: GABAPENTIN 100 MG CAPSULE PO SCH (22:20)
[2022-06-05] MEDS: GABAPENTIN 100 MG CAPSULE PO SCH ×3 (05:32→22:19)
[2022-06-05] MEDS: diazePAM 5 MG TABLET PO PRN ×3 (05:34→19:20)
[2022-06-05] MEDS: MAG HYDROX/AL HYDROX/SIMETH 30 ML UNIT-DOSE CUP PO PRN (05:36)
[2022-06-05] MEDS: PRENATAL VITAMINS W/ FOLIC ACID TABLET (FP) PO SCH (10:05)
[2022-06-05] MEDS: ONDANSETRON *ODT* 4 MG TABLET SL PRN ×2 (10:08→17:54)
[2022-06-05 11:03] LABS: HEMATOCRIT 43.1 % (35.4-49); HEMOGLOBIN 14.9 GM/dL (11.7-16.9); MCH 29.1 pg (25.7-33.7); MCHC 34.6 g/dl (32.0-35.9); MEAN PLT VOLUME 11.7 fl (7.5-11.1); PLATELET COUNT 110 10^3/uL (134-434); RBC 5.12 M/mm3 (4.00-5.60); RDW 13.4 % (11.9-15.9)
[2022-06-05 11:18] LABS: CALCIUM 9.5 mg/dL (8.5-10.1)
[2022-06-05 11:19] LABS: ALBUMIN 3.9 g/dl (3.4-5.0); BLOOD UREA NITROGEN 10.8 mg/dL (7-18)
[2022-06-05 11:22] LABS: CREATININE 0.9 mg/dL (0.55-1.3)
[2022-06-05 11:23] LABS: BILIRUBIN,TOTAL 1.1 mg/dL (0.2-1); TOT PROT 8.3 g/dl (6.4-8.2)
[2022-06-05] MEDS: methaDONE HCL 40 MG DISPERSABLE TABLET PO SCH (11:35)
[2022-06-05] MEDS: diazePAM 5 MG TABLET PO SCH ×3 (11:37→22:18)
[2022-06-05] MEDS: hydrOXYzine PAMOATE 25 MG CAPSULE (FP) PO PRN (13:23)
[2022-06-05] MEDS: ACETAMINOPHEN 325 MG TABLET (FP) PO PRN (17:53)
[2022-06-05] MEDS: METHOCARBAMOL 500 MG TABLET PO PRN (19:22)
[2022-06-05] MEDS: THIAMINE HCL 100 MG TABLET (FP) PO SCH (22:19)
[2022-06-05] MEDS: MELATONIN 5 MG TABLETS PO PRN (22:19)
[2022-06-06] MEDS: diazePAM 5 MG TABLET PO PRN ×3 (01:22→19:35)
[2022-06-06] MEDS: methaDONE HCL 40 MG DISPERSABLE TABLET PO SCH (05:44)
[2022-06-06] MEDS: diazePAM 5 MG TABLET PO SCH ×4 (05:45→22:14)
[2022-06-06] MEDS: GABAPENTIN 100 MG CAPSULE PO SCH ×3 (05:45→22:14)
[2022-06-06] MEDS: PRENATAL VITAMINS W/ FOLIC ACID TABLET (FP) PO SCH (10:14)
[2022-06-06] MEDS: ONDANSETRON *ODT* 4 MG TABLET SL PRN (10:16)
[2022-06-06] MEDS: hydrOXYzine PAMOATE 25 MG CAPSULE (FP) PO PRN (10:16)
[2022-06-06 12:10] LABS: SGOT/AST 94 U/L (15-37)
[2022-06-06 12:11] LABS: SGPT/ALT 246 U/L (13-61)
[2022-06-06] MEDS: IBUPROFEN 600 MG TABLET (FP) PO PRN (17:11)
[2022-06-06] MEDS: METHOCARBAMOL 500 MG TABLET PO PRN (18:28)
[2022-06-06] MEDS: MAG HYDROX/AL HYDROX/SIMETH 30 ML UNIT-DOSE CUP PO PRN (19:35)
[2022-06-06] MEDS: MELATONIN 5 MG TABLETS PO PRN (22:14)
[2022-06-06] MEDS: THIAMINE HCL 100 MG TABLET (FP) PO SCH (22:14)
[2022-06-07] MEDS: diazePAM 5 MG TABLET PO PRN ×3 (00:57→16:48)
[2022-06-07] MEDS: methaDONE HCL 40 MG DISPERSABLE TABLET PO SCH (05:27)
[2022-06-07] MEDS: GABAPENTIN 100 MG CAPSULE PO SCH ×3 (05:27→22:06)
[2022-06-07] MEDS: diazePAM 5 MG TABLET PO SCH ×3 (05:27→22:06)
[2022-06-07] MEDS: IBUPROFEN 400 MG TABLET (FP) PO PRN (05:29)
[2022-06-07] MEDS: METHOCARBAMOL 500 MG TABLET PO PRN ×2 (08:43→16:48)
[2022-06-07] MEDS: hydrOXYzine PAMOATE 25 MG CAPSULE (FP) PO PRN ×2 (10:14→22:08)
[2022-06-07] MEDS: PRENATAL VITAMINS W/ FOLIC ACID TABLET (FP) PO SCH (10:14)
[2022-06-07] MEDS: MAG HYDROX/AL HYDROX/SIMETH 30 ML UNIT-DOSE CUP PO PRN (16:48)
[2022-06-07] MEDS: THIAMINE HCL 100 MG TABLET (FP) PO SCH (22:06)
[2022-06-07] MEDS: MELATONIN 5 MG TABLETS PO PRN (22:06)
[2022-06-08] MEDS: diazePAM 5 MG TABLET PO PRN ×2 (01:36→10:15)
[2022-06-08] MEDS: methaDONE HCL 40 MG DISPERSABLE TABLET PO SCH (05:44)
[2022-06-08] MEDS: GABAPENTIN 100 MG CAPSULE PO SCH ×3 (05:45→22:10)
[2022-06-08] MEDS: diazePAM 5 MG TABLET PO SCH ×2 (05:45→17:23)
[2022-06-08] MEDS: ONDANSETRON *ODT* 4 MG TABLET SL PRN (08:06)
[2022-06-08] MEDS: IBUPROFEN 600 MG TABLET (FP) PO PRN (08:06)
[2022-06-08] MEDS: METHOCARBAMOL 500 MG TABLET PO PRN ×3 (08:07→22:10)
[2022-06-08] MEDS: PRENATAL VITAMINS W/ FOLIC ACID TABLET (FP) PO SCH (10:12)
[2022-06-08] MEDS: hydrOXYzine PAMOATE 25 MG CAPSULE (FP) PO PRN ×2 (10:14→22:10)
[2022-06-08] MEDS: IBUPROFEN 400 MG TABLET (FP) PO PRN (17:23)
[2022-06-08] MEDS: MELATONIN 5 MG TABLETS PO PRN (22:09)
[2022-06-08] MEDS: THIAMINE HCL 100 MG TABLET (FP) PO SCH (22:10)
[2022-06-09] MEDS: methaDONE HCL 40 MG DISPERSABLE TABLET PO SCH (05:39)
[2022-06-09] MEDS: GABAPENTIN 100 MG CAPSULE PO SCH (05:40)
[2022-06-09] MEDS ORDERED: diazePAM 5 MG TABLET PO ONE (06:00)
[2022-06-09 09:44] VITALS: BP 126/85; PULSE 111; RESP 18; TEMP 98.6
[2022-06-09] MEDS: PRENATAL VITAMINS W/ FOLIC ACID TABLET (FP) PO SCH (10:59)
== END 2022-06-09 09:58 | disposition home or self-care (01) | DRG 773 ==
LOC: YASAS 13:12 → Y3N 17:56
PROVIDERS: ADMIT Allergy & Immunology; ATTEND Surgery
PROC: HZ2ZZZZ Detoxification Services for Substance Abuse Treatment (ICD-10-PCS; principal; 2022-06-04)
DX: F11.23 Opioid dependence with withdrawal (principal); F10.230 Alcohol dependence with withdrawal, uncomplicated; F14.20 Cocaine dependence, uncomplicated; F17.210 Nicotine dependence, cigarettes, uncomplicated; F31.9 Bipolar disorder, unspecified; G47.00 Insomnia, unspecified; R73.03 Prediabetes; Z86.19 Personal history of other infectious and parasitic diseases; Z88.0 Allergy status to penicillin; Z91.199 Patient's noncompliance with other medical treatment and regimen due to unspecified reason
CPT/HCPCS: 36415; 80053; 84450; 84460; 85027; 86780; C9803-CS; G0480; Q0162; U0003; U0005

== ENCOUNTER 2022-07-09 11:54 | Inpatient (IN) | payer OTHER ==
[2022-07-09 12:54] VITALS: BMI 28.9
[2022-07-09] MEDS ORDERED: NICOTINE POLACRILEX 2 MG GUM BUC PRN (15:07)
[2022-07-09] MEDS ORDERED: ONDANSETRON *ODT* 4 MG TABLET SL PRN (15:07)
[2022-07-09] MEDS ORDERED: MAG HYDROX/AL HYDROX/SIMETH 30 ML UNIT-DOSE CUP PO PRN (15:07)
[2022-07-09] MEDS ORDERED: NALOXONE HCL (KLOXXADO) 8 MG SPRAY NS PRN (15:07)
[2022-07-09] MEDS ORDERED: AMMONIUM LACTATE 12% LOTION 225 GM BOTTLE TP PRN (15:07)
[2022-07-09] MEDS ORDERED: NICOTINE 10 MG CARTRIDGE (INHALER) IH PRN (15:07)
[2022-07-09] MEDS ORDERED: COLLOIDAL OATMEAL 1 BAR EACH TP PRN (15:07)
[2022-07-09] MEDS ORDERED: POLYETHYLENE GLYCOL (HEALTHYLAX) 3350 17 GM PACKET PO PRN (15:07)
[2022-07-09] MEDS ORDERED: BISMUTH SUBSALICYLATE 524 MG/30 ML PO PRN (15:07)
[2022-07-09] MEDS ORDERED: MAGNESIUM HYDROX 2400MG/30ML ORAL SUSPENSION 30 ML CUP PO PRN (15:07)
[2022-07-09] MEDS ORDERED: LOPERAMIDE HCL 2 MG CAPSULE PO PRN (15:07)
[2022-07-09] MEDS ORDERED: IBUPROFEN 600 MG TABLET (FP) PO PRN (15:07)
[2022-07-09] MEDS ORDERED: ACETAMINOPHEN 325 MG TABLET (FP) PO PRN (15:07)
[2022-07-09] MEDS ORDERED: BENZONATATE 200 MG CAPSULE PO PRN (15:07)
[2022-07-09] MEDS ORDERED: NALOXONE HCL 0.4 MG/ML VIAL IM PRN (15:07)
[2022-07-09] MEDS ORDERED: BENZOCAINE/MENTHOL (CHLORASEPTIC ) LOZENGE MM PRN (15:07)
[2022-07-09] MEDS ORDERED: DICYCLOMINE HCL 10 MG CAPSULE PO PRN (15:07)
[2022-07-09] MEDS ORDERED: guaiFENesin 600 MG TABLET.ER (FP) PO PRN (15:07)
[2022-07-09] MEDS: NICOTINE 21 MG/24 HOURS TOPICAL PATCH TD SCH (15:18)
[2022-07-09] MEDS: diazePAM 5 MG TABLET PO SCH ×2 (17:24→22:01)
[2022-07-09] MEDS ORDERED: MELATONIN 5 MG TABLETS PO SCH (22:00)
[2022-07-09] MEDS: THIAMINE HCL 100 MG TABLET (FP) PO SCH (22:01)
[2022-07-09] MEDS: METHOCARBAMOL 500 MG TABLET PO PRN (22:01)
[2022-07-10] MEDS: diazePAM 5 MG TABLET PO SCH ×4 (05:45→22:28)
[2022-07-10] MEDS: IBUPROFEN 400 MG TABLET (FP) PO PRN (05:47)
[2022-07-10] MEDS: NICOTINE 21 MG/24 HOURS TOPICAL PATCH TD SCH (10:30)
[2022-07-10] MEDS: PRENATAL VITAMINS W/ FOLIC ACID TABLET (FP) PO SCH (10:31)
[2022-07-10] MEDS: hydrOXYzine PAMOATE 25 MG CAPSULE (FP) PO PRN ×2 (10:50→22:24)
[2022-07-10] MEDS: methaDONE HCL 40 MG DISPERSABLE TABLET PO SCH (10:53)
[2022-07-10 12:36] LABS: HEMATOCRIT 39.4 % (35.4-49); HEMOGLOBIN 13.3 GM/dL (11.7-16.9); MCH 28.8 pg (25.7-33.7); MCHC 33.7 g/dl (32.0-35.9); MEAN CELL VOLUME 85.4 fl (80-96); MEAN PLT VOLUME 10.6 fl (7.5-11.1); PLATELET COUNT 82 10^3/uL (134-434); RBC 4.61 M/mm3 (4.00-5.60); RDW 13.6 % (11.9-15.9); WHITE BLOOD COUNT 5.3 K/mm3 (4.0-10.0)
[2022-07-10 13:18] LABS: POTASSIUM 4.1 mmol/L (3.5-5.1)
[2022-07-10 13:31] LABS: BLOOD UREA NITROGEN 11.3 mg/dL (7-18)
[2022-07-10 13:32] LABS: ALBUMIN 3.5 g/dl (3.4-5.0); CALCIUM 8.8 mg/dL (8.5-10.1)
[2022-07-10 13:36] LABS: BILIRUBIN,TOTAL 0.6 mg/dL (0.2-1); CREATININE 0.8 mg/dL (0.55-1.3); TOT PROT 7.1 g/dl (6.4-8.2)
[2022-07-10] MEDS: METHOCARBAMOL 500 MG TABLET PO PRN (17:14)
[2022-07-10] MEDS: THIAMINE HCL 100 MG TABLET (FP) PO SCH (22:24)
[2022-07-10] MEDS: SUVOREXANT 10 MG TABLET PO PRN (22:27)
[2022-07-11] MEDS: diazePAM 5 MG TABLET PO SCH ×3 (05:31→22:35)
[2022-07-11] MEDS: methaDONE HCL 40 MG DISPERSABLE TABLET PO SCH (05:31)
[2022-07-11] MEDS: hydrOXYzine PAMOATE 25 MG CAPSULE (FP) PO PRN ×4 (05:32→22:34)
[2022-07-11] MEDS: NICOTINE 21 MG/24 HOURS TOPICAL PATCH TD SCH (10:15)
[2022-07-11] MEDS: PRENATAL VITAMINS W/ FOLIC ACID TABLET (FP) PO SCH (10:15)
[2022-07-11] MEDS: METHOCARBAMOL 500 MG TABLET PO PRN (10:19)
[2022-07-11 11:37] LABS: SGOT/AST 84 U/L (15-37); SGPT/ALT 154 U/L (13-61)
[2022-07-11] MEDS: diazePAM 5 MG TABLET PO PRN ×2 (11:53→17:09)
[2022-07-11] MEDS: levETIRAcetam 500 MG TABLET (FP) PO SCH ×2 (11:55→22:34)
[2022-07-11] MEDS: THIAMINE HCL 100 MG TABLET (FP) PO SCH (22:35)
[2022-07-11] MEDS: SUVOREXANT 10 MG TABLET PO PRN (22:35)
[2022-07-12] MEDS: diazePAM 5 MG TABLET PO PRN ×4 (01:25→19:53)
[2022-07-12] MEDS: diazePAM 5 MG TABLET PO SCH ×2 (05:35→17:00)
[2022-07-12] MEDS: methaDONE HCL 40 MG DISPERSABLE TABLET PO SCH (05:35)
[2022-07-12] MEDS: METHOCARBAMOL 500 MG TABLET PO PRN ×3 (07:53→22:34)
[2022-07-12] MEDS: NICOTINE 21 MG/24 HOURS TOPICAL PATCH TD SCH (10:01)
[2022-07-12] MEDS: PRENATAL VITAMINS W/ FOLIC ACID TABLET (FP) PO SCH (10:03)
[2022-07-12] MEDS: hydrOXYzine PAMOATE 25 MG CAPSULE (FP) PO PRN (10:03)
[2022-07-12] MEDS: levETIRAcetam 500 MG TABLET (FP) PO SCH ×2 (10:04→22:34)
[2022-07-12] MEDS: THIAMINE HCL 100 MG TABLET (FP) PO SCH (22:34)
[2022-07-12] MEDS: SUVOREXANT 10 MG TABLET PO PRN (22:35)
[2022-07-12] MEDS: IBUPROFEN 400 MG TABLET (FP) PO PRN (22:36)
[2022-07-13] MEDS: diazePAM 5 MG TABLET PO PRN (00:35)
[2022-07-13] MEDS: METHOCARBAMOL 500 MG TABLET PO PRN (05:50)
[2022-07-13] MEDS: methaDONE HCL 40 MG DISPERSABLE TABLET PO SCH (05:50)
[2022-07-13] MEDS ORDERED: diazePAM 5 MG TABLET PO ONE (06:00)
[2022-07-13 06:31] VITALS: PULSE 90; RESP 18; TEMP 97.3
[2022-07-13 10:11] VITALS: BP 127/71
[2022-07-13] MEDS: PRENATAL VITAMINS W/ FOLIC ACID TABLET (FP) PO SCH (10:48)
[2022-07-13] MEDS: NICOTINE 21 MG/24 HOURS TOPICAL PATCH TD SCH (10:48)
== END 2022-07-13 10:55 | disposition home or self-care (01) | DRG 773 ==
LOC: YASAS 11:54 → Y6N 14:59
PROVIDERS: ADMIT Allergy & Immunology; ATTEND Surgery
PROC: HZ2ZZZZ Detoxification Services for Substance Abuse Treatment (ICD-10-PCS; principal; 2022-07-09)
DX: F13.230 Sedative, hypnotic or anxiolytic dependence with withdrawal, uncomplicated (principal); F11.20 Opioid dependence, uncomplicated; F14.20 Cocaine dependence, uncomplicated; F17.210 Nicotine dependence, cigarettes, uncomplicated; F10.282 Alcohol dependence with alcohol-induced sleep disorder; F10.280 Alcohol dependence with alcohol-induced anxiety disorder; F19.24 Other psychoactive substance dependence with psychoactive substance-induced mood disorder; F31.9 Bipolar disorder, unspecified; R73.03 Prediabetes; Z86.19 Personal history of other infectious and parasitic diseases; Z88.0 Allergy status to penicillin
CPT/HCPCS: 36415; 80053; 84450; 84460; 85027; 86780; 87811; C9803-CS; Q0162; U0003; U0005

== ENCOUNTER 2022-10-18 15:00 | Inpatient (IN) | payer OTHER ==
[2022-10-18 15:34] VITALS: BMI 28.3
[2022-10-18] MEDS ORDERED: DICYCLOMINE HCL 10 MG CAPSULE PO PRN (17:23)
[2022-10-18] MEDS ORDERED: BISMUTH SUBSALICYLATE 524 MG/30 ML PO PRN (17:23)
[2022-10-18] MEDS ORDERED: LOPERAMIDE HCL 2 MG CAPSULE PO PRN (17:23)
[2022-10-18] MEDS ORDERED: NALOXONE HCL 0.4 MG/ML VIAL IM PRN (17:23)
[2022-10-18] MEDS ORDERED: MAGNESIUM HYDROX 2400MG/30ML ORAL SUSPENSION 30 ML CUP PO PRN (17:23)
[2022-10-18] MEDS ORDERED: NALOXONE HCL (KLOXXADO) 8 MG SPRAY NS PRN (17:23)
[2022-10-18] MEDS ORDERED: BENZOCAINE/MENTHOL (CHLORASEPTIC ) LOZENGE MM PRN (17:23)
[2022-10-18] MEDS ORDERED: ONDANSETRON *ODT* 4 MG TABLET SL PRN (17:23)
[2022-10-18] MEDS ORDERED: POLYETHYLENE GLYCOL (HEALTHYLAX) 3350 17 GM PACKET PO PRN (17:23)
[2022-10-18] MEDS ORDERED: IBUPROFEN 400 MG TABLET (FP) PO PRN (17:23)
[2022-10-18] MEDS ORDERED: MAG HYDROX/AL HYDROX/SIMETH 30 ML UNIT-DOSE CUP PO PRN (17:23)
[2022-10-18] MEDS ORDERED: P-EPHED 60MG/TRIPROLIDI 2.5MG TABLET PO PRN (17:23)
[2022-10-18] MEDS ORDERED: BENZONATATE 200 MG CAPSULE PO PRN (17:23)
[2022-10-18] MEDS: ACETAMINOPHEN 325 MG TABLET (FP) PO PRN (19:35)
[2022-10-18] MEDS: diazePAM 5 MG TABLET PO PRN (19:36)
[2022-10-18] MEDS: THIAMINE HCL 100 MG TABLET (FP) PO SCH (22:52)
[2022-10-18] MEDS: hydrOXYzine PAMOATE 25 MG CAPSULE (FP) PO PRN (22:52)
[2022-10-18] MEDS: METHOCARBAMOL 500 MG TABLET PO PRN (22:52)
[2022-10-18] MEDS: MELATONIN 5 MG TABLETS PO SCH (22:52)
[2022-10-18] MEDS: diazePAM 5 MG TABLET PO SCH (22:53)
[2022-10-18] MEDS: IBUPROFEN 600 MG TABLET (FP) PO PRN (22:54)
[2022-10-19] MEDS: diazePAM 5 MG TABLET PO SCH ×4 (05:10→22:16)
[2022-10-19] MEDS: IBUPROFEN 600 MG TABLET (FP) PO PRN ×2 (06:11→17:40)
[2022-10-19 10:34] LABS: POTASSIUM 3.5 mmol/L (3.5-5.1)
[2022-10-19] MEDS: methaDONE HCL 40 MG DISPERSABLE TABLET PO SCH (10:35)
[2022-10-19] MEDS: PRENATAL VITAMINS W/ FOLIC ACID TABLET (FP) PO SCH (10:35)
[2022-10-19 10:38] LABS: BLOOD UREA NITROGEN 21.1 mg/dL (7-18); CALCIUM 8.3 mg/dL (8.5-10.1)
[2022-10-19] MEDS: METHOCARBAMOL 500 MG TABLET PO PRN ×2 (10:39→22:16)
[2022-10-19] MEDS: ACETAMINOPHEN 325 MG TABLET (FP) PO PRN (10:39)
[2022-10-19 10:42] LABS: CREATININE 0.8 mg/dL (0.55-1.3)
[2022-10-19 10:43] LABS: BILIRUBIN,TOTAL 0.4 mg/dL (0.2-1); TOT PROT 6.5 g/dl (6.4-8.2)
[2022-10-19 10:50] LABS: HEMATOCRIT 34.6 % (35.4-49); HEMOGLOBIN 11.7 GM/dL (11.7-16.9); MCH 29.4 pg (25.7-33.7); MCHC 33.8 g/dl (32.0-35.9); MEAN CELL VOLUME 86.8 fl (80-96); MEAN PLT VOLUME 10.6 fl (7.5-11.1); PLATELET COUNT 120 10^3/uL (134-434); RBC 3.99 M/mm3 (4.00-5.60); RDW 13.7 % (11.9-15.9)
[2022-10-19] MEDS: diazePAM 5 MG TABLET PO PRN (15:04)
[2022-10-19] MEDS: THIAMINE HCL 100 MG TABLET (FP) PO SCH (22:16)
[2022-10-19] MEDS: MELATONIN 5 MG TABLETS PO SCH (22:16)
[2022-10-19] MEDS: hydrOXYzine PAMOATE 25 MG CAPSULE (FP) PO PRN (22:16)
[2022-10-20] MEDS: diazePAM 5 MG TABLET PO PRN ×4 (01:23→20:48)
[2022-10-20] MEDS: diazePAM 5 MG TABLET PO SCH ×3 (05:34→22:54)
[2022-10-20] MEDS: methaDONE HCL 40 MG DISPERSABLE TABLET PO SCH (05:34)
[2022-10-20] MEDS: METHOCARBAMOL 500 MG TABLET PO PRN ×2 (08:51→16:42)
[2022-10-20] MEDS: hydrOXYzine PAMOATE 25 MG CAPSULE (FP) PO PRN ×2 (08:51→16:42)
[2022-10-20] MEDS: PRENATAL VITAMINS W/ FOLIC ACID TABLET (FP) PO SCH (09:05)
[2022-10-20] MEDS: IBUPROFEN 600 MG TABLET (FP) PO PRN (19:48)
[2022-10-20] MEDS: THIAMINE HCL 100 MG TABLET (FP) PO SCH (22:48)
[2022-10-20] MEDS: MELATONIN 5 MG TABLETS PO SCH (22:48)
[2022-10-21] MEDS: diazePAM 5 MG TABLET PO PRN ×3 (02:07→13:41)
[2022-10-21] MEDS: IBUPROFEN 600 MG TABLET (FP) PO PRN ×3 (02:08→22:17)
[2022-10-21] MEDS: diazePAM 5 MG TABLET PO SCH ×2 (05:36→17:33)
[2022-10-21] MEDS: ACETAMINOPHEN 325 MG TABLET (FP) PO PRN ×2 (05:37→17:35)
[2022-10-21] MEDS ORDERED: methaDONE 40 MG, methaDONE 10 MG PO SCH (06:00)
[2022-10-21] MEDS: PRENATAL VITAMINS W/ FOLIC ACID TABLET (FP) PO SCH (09:38)
[2022-10-21] MEDS: hydrOXYzine PAMOATE 25 MG CAPSULE (FP) PO PRN (17:34)
[2022-10-21] MEDS: MELATONIN 5 MG TABLETS PO SCH (22:15)
[2022-10-21] MEDS: THIAMINE HCL 100 MG TABLET (FP) PO SCH (22:15)
[2022-10-21] MEDS: METHOCARBAMOL 500 MG TABLET PO PRN (22:17)
[2022-10-22] MEDS: IBUPROFEN 600 MG TABLET (FP) PO PRN ×2 (05:42→18:10)
[2022-10-22] MEDS: METHOCARBAMOL 500 MG TABLET PO PRN (05:42)
[2022-10-22] MEDS: hydrOXYzine PAMOATE 25 MG CAPSULE (FP) PO PRN (05:43)
[2022-10-22] MEDS ORDERED: diazePAM 5 MG TABLET PO ONE (06:00)
[2022-10-22] MEDS ORDERED: methaDONE 40 MG, methaDONE 20 MG PO ONE (06:00)
[2022-10-22] MEDS ORDERED: methaDONE 40 MG, methaDONE 20 MG PO SCH (06:00)
[2022-10-22] MEDS: PRENATAL VITAMINS W/ FOLIC ACID TABLET (FP) PO SCH (09:24)
[2022-10-22 17:22] VITALS: BP 116/64; PULSE 72; RESP 18; TEMP 97.5
== END 2022-10-22 20:11 | disposition home or self-care (01) | DRG 773 ==
LOC: YASAS 15:00 → Y3N 18:27
PROVIDERS: ADMIT Allergy & Immunology; ATTEND Surgery
PROC: HZ2ZZZZ Detoxification Services for Substance Abuse Treatment (ICD-10-PCS; principal; 2022-10-18)
DX: F10.230 Alcohol dependence with withdrawal, uncomplicated (principal); F14.20 Cocaine dependence, uncomplicated; F11.20 Opioid dependence, uncomplicated; F17.210 Nicotine dependence, cigarettes, uncomplicated; F19.24 Other psychoactive substance dependence with psychoactive substance-induced mood disorder; F31.9 Bipolar disorder, unspecified; R73.03 Prediabetes; Z86.59 Personal history of other mental and behavioral disorders; Z86.19 Personal history of other infectious and parasitic diseases; Z88.0 Allergy status to penicillin
CPT/HCPCS: 36415; 80053; 85027; 86780; 87635; 87811

== ENCOUNTER 2023-11-15 11:40 | Inpatient (IN) | payer OTHER ==
[2023-11-15 12:05] VITALS: BMI 23.3
[2023-11-15] MEDS ORDERED: guaiFENesin 600 MG TABLET.ER (FP) PO PRN (13:07)
[2023-11-15] MEDS ORDERED: POLYETHYLENE GLYCOL (HEALTHYLAX) 3350 17 GM PACKET PO PRN (13:07)
[2023-11-15] MEDS ORDERED: BENZOCAINE/MENTHOL (CHLORASEPTIC ) LOZENGE MM PRN (13:07)
[2023-11-15] MEDS ORDERED: NALOXONE HCL 0.4 MG/ML VIAL IM PRN (13:07)
[2023-11-15] MEDS ORDERED: NALOXONE (NARCAN) HCL 4 MG/0.1 ML SPRAY NS PRN (13:07)
[2023-11-15] MEDS ORDERED: BISMUTH SUBSALICYLATE 524 MG/30 ML PO PRN (13:07)
[2023-11-15] MEDS ORDERED: LOPERAMIDE HCL 2 MG CAPSULE PO PRN (13:07)
[2023-11-15] MEDS ORDERED: BENZONATATE 200 MG CAPSULE PO PRN (13:07)
[2023-11-15] MEDS ORDERED: methaDONE HCL 10 MG TABLET ONE (14:01)
[2023-11-15] MEDS ORDERED: cloNIDine HCL 0.1 MG TABLET ONE (14:01)
[2023-11-15] MEDS: cloNIDine HCL 0.1 MG TABLET PO SCH (14:05)
[2023-11-15] MEDS: methaDONE HCL 10 MG TABLET PO ONE (14:05)
[2023-11-15] MEDS: ONDANSETRON *ODT* 4 MG TABLET SL PRN (14:30)
[2023-11-15] MEDS ORDERED: ONDANSETRON *ODT* 4 MG TABLET ONE (14:33)
[2023-11-15] MEDS: diazePAM 5 MG TABLET PO PRN (15:27)
[2023-11-15] MEDS: IBUPROFEN 600 MG TABLET (FP) PO PRN (17:22)
[2023-11-15] MEDS: diazePAM 5 MG TABLET PO SCH (17:22)
[2023-11-15] MEDS: THIAMINE 100 MG TABLET PO SCH (22:34)
[2023-11-15] MEDS: MELATONIN 5 MG TABLETS PO SCH (22:34)
[2023-11-15] MEDS: DICYCLOMINE HCL 10 MG CAPSULE PO PRN (22:35)
[2023-11-16] MEDS: methaDONE HCL 40 MG DISPERSABLE TABLET PO SCH (05:40)
[2023-11-16] MEDS: GABAPENTIN 300 MG CAPSULE PO SCH (09:35)
[2023-11-16] MEDS: PRENATAL VITAMINS W/ FOLIC ACID TABLET (FP) PO SCH (09:35)
[2023-11-16] MEDS: NICOTINE POLACRILEX 2 MG GUM BUC PRN (09:36)
[2023-11-16] MEDS: methaDONE HCL 10 MG TABLET PO ONE (10:15)
[2023-11-16 11:04] LABS: HEMATOCRIT 38.6 % (35.4-49); HEMOGLOBIN 12.9 GM/dL (11.7-16.9); MCH 28.7 pg (25.7-33.7); MCHC 33.4 g/dl (32.0-35.9); MEAN CELL VOLUME 85.9 fl (80-96); MEAN PLT VOLUME 10.5 fl (7.5-11.1); PLATELET COUNT 155 10^3/uL (134-434); RBC 4.49 M/mm3 (4.00-5.60); RDW 13.6 % (11.9-15.9); WHITE BLOOD COUNT 4.4 K/mm3 (4.0-10.0)
[2023-11-16 11:08] LABS: CHLORIDE 104 mmol/L (98-107); SODIUM 141 mmol/L (136-145)
[2023-11-16 11:13] LABS: ALBUMIN 3.6 g/dl (3.4-5.0); ANION GAP 5 mmol/L (4-13); BLOOD UREA NITROGEN 13.3 mg/dL (7-18); CALCIUM 9.6 mg/dL (8.5-10.1); CO2 32 mmol/L (21-32); GLUCOSE,RANDOM 117 mg/dL (74-106)
[2023-11-16 11:16] LABS: CREATININE 0.9 mg/dL (0.55-1.3)
[2023-11-16 11:18] LABS: SGPT/ALT 15 U/L (13-61); TOT PROT 6.9 g/dl (6.4-8.2)
[2023-11-16 11:19] LABS: ALK PHOS 56 U/L (45-117); SGOT/AST 10 U/L (15-37)
[2023-11-16 11:24] LABS: BILIRUBIN,TOTAL 0.4 mg/dL (0.2-1)
[2023-11-16] MEDS: METHOCARBAMOL 500 MG TABLET PO PRN (22:29)
[2023-11-17] MEDS: diazePAM 5 MG TABLET PO SCH (05:45)
[2023-11-17] MEDS: methaDONE HCL 10 MG TABLET PO ONE (10:04)
[2023-11-17] MEDS ORDERED: PATIENT'S OWN MEDICATION (NON-FORMULARY) (Lamotrigine [Lamictal] 150 MG Tablet) PO SCH (14:45)
[2023-11-17] MEDS: LAMOTRIGINE 100 MG, LAMOTRIGINE 50 MG PO SCH (15:55)
[2023-11-17] MEDS: cloNIDine HCL 0.1 MG TABLET PO PRN (20:09)
[2023-11-17] MEDS: MAGNESIUM HYDROX 2400MG/30ML ORAL SUSPENSION 30 ML CUP PO PRN (20:11)
[2023-11-18] MEDS: diazePAM 5 MG TABLET PO SCH (05:16)
[2023-11-18] MEDS: cloNIDine HCL 0.1 MG TABLET PO PRN (09:25)
[2023-11-18] MEDS ORDERED: methaDONE HCL 40 MG DISPERSABLE TABLET PO ONE ×2 (10:00)
[2023-11-18] MEDS: METHOCARBAMOL 500 MG TABLET PO PRN (13:04)
[2023-11-19] MEDS: diazePAM 5 MG TABLET PO ONE (05:23)
[2023-11-19] MEDS ORDERED: diazePAM 5 MG TABLET PO PRN (08:56)
[2023-11-19] MEDS: methaDONE HCL 10 MG TABLET PO ONE (09:46)
[2023-11-19] MEDS: clonazePAM 0.5 MG ODT TABLETS SL SCH (09:51)
[2023-11-19] MEDS ORDERED: clonazePAM 1 MG ODT TABLETS SL SCH ×2 (10:00)
[2023-11-19] MEDS ORDERED: methaDONE 40 MG, methaDONE 10 MG PO ONE (10:00)
[2023-11-19] MEDS ORDERED: methaDONE HCL 10 MG TABLET PO ONE (10:00)
[2023-11-19] MEDS ORDERED: methaDONE HCL 40 MG DISPERSABLE TABLET PO ONE (10:00)
[2023-11-19] MEDS: MAG HYDROX/AL HYDROX/SIMETH 30 ML UNIT-DOSE CUP PO PRN (16:37)
[2023-11-19] MEDS: MELATONIN 5 MG TABLETS PO SCH (21:41)
[2023-11-19] MEDS ORDERED: clonazePAM 0.5 MG ODT TABLETS SL SCH (22:00)
[2023-11-20] MEDS: methaDONE 80 MG, methaDONE 20 MG PO SCH (05:36)
[2023-11-20 05:59] VITALS: RESP 18
[2023-11-20] MEDS ORDERED: methaDONE HCL 10 MG TABLET PO SCH ×2 (06:00)
[2023-11-20 09:02] VITALS: BP 114/74; PULSE 87; TEMP 97.3
[2023-11-20] MEDS ORDERED: methaDONE 40 MG, methaDONE 20 MG PO ONE (10:00)
[2023-11-20] MEDS ORDERED: methaDONE HCL 40 MG DISPERSABLE TABLET PO ONE (10:00)
[2023-11-20] MEDS: IBUPROFEN 400 MG TABLET (FP) PO PRN (10:16)
== END 2023-11-20 10:54 | disposition home or self-care (01) | DRG 773 ==
LOC: YASAS 11:40 → Y3N 13:31
PROVIDERS: ADMIT Allergy & Immunology; ATTEND Surgery
PROC: HZ2ZZZZ Detoxification Services for Substance Abuse Treatment (ICD-10-PCS; principal; 2023-11-15)
DX: F11.23 Opioid dependence with withdrawal (principal); F10.230 Alcohol dependence with withdrawal, uncomplicated; F14.20 Cocaine dependence, uncomplicated; F13.20 Sedative, hypnotic or anxiolytic dependence, uncomplicated; F17.210 Nicotine dependence, cigarettes, uncomplicated; F19.282 Other psychoactive substance dependence with psychoactive substance-induced sleep disorder; F19.280 Other psychoactive substance dependence with psychoactive substance-induced anxiety disorder; F19.24 Other psychoactive substance dependence with psychoactive substance-induced mood disorder; F42.9 Obsessive-compulsive disorder, unspecified; F32.A Depression, unspecified; Z62.810 Personal history of physical and sexual abuse in childhood; Z86.69 Personal history of other diseases of the nervous system and sense organs; Z59.00 Homelessness unspecified; Z88.0 Allergy status to penicillin
CPT/HCPCS: 36415; 80053; 80305; 80307; 82140; 85027; 86780; 93005; 93010; Q0162